=== PATIENT | male | born 1990 ===

== ENCOUNTER 2018-02-20 13:50 | Emergency (ER) | payer OTHER ==
[2018-02-20 13:51] VITALS: BMI 19.2
[2018-02-20] MEDS ORDERED: Sodium Chloride 0.9% 1,000 ML IV STA (14:36)
[2018-02-20] MEDS ORDERED: Sucralfate 1 gm/10 ml Oral Susp UD PO STA (14:39)
--- NOTE | 2018-02-20 14:42 | ED PDOC ---
HPI: Abdomen Time Seen by Provider: 02/20/18 14:12 Chief Complaint (Nursing): Abdominal Pain Chief Complaint (Provider): Abdominal Pain History Per: Patient History/Exam Limitations: no limitations Onset/Duration Of Symptoms: Days (x4) Outside of [place] travel?: No Current Symptoms Are (Timing): Still Present Quality Of Discomfort: "Pain" Associated Symptoms: Fever, Chills, Nausea, Vomiting, Diarrhea Additional Complaint(s): 27 y/o male with a history of asthma presents to the ED for abdominal pain. Patient states symptoms began 4 days ago associated with diarrhea, 2 episodes of vomiting per day with specs of blood noted; also reports fever, chills, nausea, and achiness in his legs. He took TheraFlu last night at 1:00 AM prior to ED visit. Denies having any sick contacts. PMD: none provided Past Medical History Reviewed: Historical Data, Nursing Documentation, Vital Signs Vital Signs: Last Vital Signs Temp 98.1 F 02/20/18 13:55 Pulse 76 02/20/18 13:55 Resp 16 02/20/18 13:55 BP 148/92 H 02/20/18 13:55 Pulse Ox 98 02/20/18 15:30 - Medical History PMH: Asthma - Surgical History Surgical History: No Surg Hx - Family History Family History: States: Unknown Family Hx - Social History Current smoker - smoking cessation education provided: No Ex-Smoker (has not smoked in the last 12 months): No Alcohol: Social Drugs: Denies - Home Medications Home Medications: Ambulatory Orders Medication Instructions Recorded Diphenhydramine Hydrochlorid 25 mg PO Q6 PRN #30 cap 06/04/14 [Benadryl] Albuterol HFA [Ventolin HFA 90 2 puff IH [id number] PRN #1 puff 07/10/14 mcg/actuation (8 g)] Cyclobenzaprine HCl [Flexeril] 10 mg PO Q8 #15 tab 08/09/14 Ibuprofen [Motrin] 600 mg PO Q8 PRN #20 tab 08/09/14 Albuterol HFA [Ventolin HFA 90 1 puff IH Q4 PRN #1 unit 12/19/14 mcg/actuation (8 g)] Benzonatate [Tessalon Perles] 200 mg PO Q8H PRN #30 tab 12/19/14 Oseltamivir Phosphate [Tamiflu] 75 mg PO BID #10 cap 12/19/14 Albuterol HFA [Ventolin HFA 90 1 puff IH ASDIR #1 unit 07/30/17 mcg/actuation (8 g)] Azithromycin [Zithromax] 250 mg PO DAILY #6 tab 07/30/17 Benzonatate 200 mg PO TID PRN #20 capsule 07/30/17 Bismuth Subsalicylate [Pepto 262 mg PO Q4H PRN #30 ctb 02/20/18 Bismol] Ondansetron [Zofran] 4 mg PO Q8H #9 tab 02/20/18 - Allergies Allergies/Adverse Reactions: Allergies Allergy/AdvReac Type Severity Reaction Status Date / Time Penicillins Allergy RASH Verified 07/30/17 02:48 ranitidine Allergy RASH Verified 07/30/17 02:48 ibuprofen [From Advil] AdvReac RASH Verified 02/20/18 13:55 Review of Systems ROS Statement: Except As Marked, All Systems Reviewed And Found Negative Constitutional: Positive for: Fever, Chills. Negative for: Other (recent sick contacts) Gastrointestinal: Positive for: Nausea, Vomiting, Abdominal Pain, Diarrhea. Negative for: Hematemesis (with small specs of blood noted) Physical Exam - Reviewed Nursing Documentation Reviewed: Yes Vital Signs Reviewed: Yes - Physical Exam Appears: Positive for: Non-toxic, No Acute Distress Head Exam: Positive for: ATRAUMATIC, NORMOCEPHALIC Eye Exam: Positive for: EOMI, Normal appearance, PERRL ENT: Positive for: Other (lips are dry, mucous membranes slightly dry) Neck: Positive for: Normal, Painless ROM, Supple Cardiovascular/Chest: Positive for: Regular Rate, Rhythm (102 BPM on exam). Negative for: Murmur Respiratory: Positive for: Normal Breath Sounds. Negative for: Respiratory Distress Gastrointestinal/Abdominal: Positive for: Normal Exam (flat), Soft, Tenderness ( mild epigastric). Negative for: Distended, Guarding Back: Positive for: Normal Inspection. Negative for: L CVA Tenderness, R CVA Tenderness Extremity: Positive for: Normal ROM. Negative for: Swelling Neurologic/Psych: Positive for: Alert (awake), Oriented (x3) - Laboratory Results Result Diagrams: 02/20/18 16:10 02/20/18 16:10 - ECG O2 Sat by Pulse Oximetry: 98 (RA) Pulse Ox Interpretation: Normal - Progress Re-evaluation Time: 16:30 Condition: Improved Medical Decision Making Medical Decision Making: Time: 13:55 Impression: Gastroenteritis, viral syndrome, blood streaked emesis Initial Plan: * CMP * UDip * CBC * IV Fluids * Zofran 4 mg IVP * Sucralfate 1 gm PO Scribe Attestation: Documented by Candy Funez acting as a scribe for Rissa Amaya MD. Scribe Attestation: All medical record entries made by the Scribe were at my direction and personally dictated by me. I have reviewed the chart and agree that the record accurately reflects my personal performance of the history, physical exam, medical decision making, and the department course for this patient. I have also personally directed, reviewed, and agree with the discharge instructions and disposition. Disposition - Clinical Impression Clinical Impression: Gastroenteritis - Patient ED Disposition Is Patient to be Admitted: No Doctor Will See Patient In The: Office Counseled Patient/Family Regarding: Diagnosis, Need For Followup - Disposition Referrals: Katharina Garcia [Outside] Disposition: Routine/Home Disposition Time: 16:37 Condition: IMPROVED Prescriptions: Bismuth Subsalicylate [Pepto Bismol] 262 mg PO Q4H PRN #30 ctb PRN Reason: Diarrhea Ondansetron [Zofran] 4 mg PO Q8H #9 tab Instructions: Gastroenteritis (ED) Forms: [facility] Rogers (Mohawk) - POA Present On Arrival: None
[2018-02-20] MEDS ORDERED: Sucralfate 1 gm/10 ml Oral Susp UD ONE (14:46)
[2018-02-20 16:14] LABS: BASO % 0.7 % (0.0-2.0); EOS # 0.3 K/uL (0.0-0.7); EOS % 5.2 % (0.0-4.0); HEMOGLOBIN 15.6 g/dL (12.0-18.0); LYMPH % 16.7 % (20.0-40.0); MEAN CELL VOLUME 87.2 fl (80.0-94.0); MEAN CORPUSCULAR HEMOGLOBIN 30.4 pg (27.0-31.0); MEAN CORPUSCULAR HGB CONC 34.8 g/dL (33.0-37.0); MONO % 16.5 % (0.0-10.0); NEUT # 3.8 K/uL (1.8-7.0); NEUT % 60.9 % (50.0-75.0); NRBC % 0.1 % (0.0-0.0); RBC 5.13 Mil/uL (4.40-5.90); RED CELL DISTRIBUTION WIDTH 12.7 % (11.5-14.5); WHITE BLOOD COUNT 6.3 K/uL (4.8-10.8)
[2018-02-20 16:30] LABS: ALB/GLOB RATIO 1.2 (1.0-2.1); ALBUMIN 4.1 g/dL (3.5-5.0); ALT/SGPT 29 U/L (21-72); AST/SGOT 38 U/L (17-59); BLOOD UREA NITROGEN 11 mg/dl (9-20); CALCIUM 9.1 mg/dL (8.4-10.2); GFR AFRICAN-AMERICAN > 60; GFR NON-AFRICAN AMERICAN > 60
[2018-02-20 17:54] VITALS: BP 138/77; PULSE 67; RESP 17; TEMP 98.3; O2SAT 100
== END 2018-02-20 17:00 | disposition home or self-care (01) ==
LOC: H.ER 13:50
DX: K52.9 Noninfective gastroenteritis and colitis, unspecified (principal); J45.909 Unspecified asthma, uncomplicated
CPT/HCPCS: 80053; 85025; 96361; 96374; 99283; J2405; J7030

== ENCOUNTER 2018-04-12 17:36 | Emergency (ER) | payer OTHER ==
[2018-04-12 17:36] VITALS: BMI 19.2
[2018-04-12 17:48] VITALS: TEMP 97.6; O2SAT 100
[2018-04-12] MEDS ORDERED: Sodium Chloride 0.9% 1,000 ML IV SCH (19:00)
--- NOTE | 2018-04-12 19:20 | ED PDOC ---
HPI: Chest Pain Time Seen by Provider: 04/12/18 17:59 Chief Complaint (Nursing): Chest Pain Chief Complaint (Provider): palpitations, vomiting History Per: Patient, Family History/Exam Limitations: no limitations Onset/Duration Of Symptoms: Hrs Current Symptoms Are (Timing): Better Quality: Sharp, Burning Associated Symptoms: Nausea (Pt. is a 27 y/o healthy male 4 hrs. s/p wisdom tooth extraction with Dr. Miroslava Low. Pt. reports upon returning home he took dose of clindamycin and tylenol #3 and then had upper abd. pain, described as burning pain radiating into chest associated with 1 large episode of vomiting, containing blood and clots. Pt. now reports he is feeling better, ) Past Medical History Vital Signs: Last Vital Signs Temp 97.6 F 04/12/18 17:45 Pulse 68 04/12/18 17:45 Resp 20 04/12/18 17:45 BP 131/89 04/12/18 17:45 Pulse Ox 100 04/12/18 19:46 - Medical History PMH: Asthma - Family History Family History: States: Unknown Family Hx - Home Medications Home Medications: Ambulatory Orders Medication Instructions Recorded Diphenhydramine Hydrochlorid 25 mg PO Q6 PRN #30 cap 06/04/14 [Benadryl] Albuterol HFA [Ventolin HFA 90 2 puff IH [id number] PRN #1 puff 14 mcg/actuation (8 g)] Cyclobenzaprine HCl [Flexeril] 10 mg PO Q8 #15 tab 08/09/14 Ibuprofen [Motrin] 600 mg PO Q8 PRN #20 tab 08/09/14 Albuterol HFA [Ventolin HFA 90 1 puff IH Q4 PRN #1 unit 12/19/14 mcg/actuation (8 g)] Benzonatate [Tessalon Perles] 200 mg PO Q8H PRN #30 tab 12/19/14 Oseltamivir Phosphate [Tamiflu] 75 mg PO BID #10 cap 12/19/14 Albuterol HFA [Ventolin HFA 90 1 puff IH ASDIR #1 unit 07/30/17 mcg/actuation (8 g)] Azithromycin [Zithromax] 250 mg PO DAILY #6 tab 07/30/17 Benzonatate 200 mg PO TID PRN #20 capsule 07/30/17 Bismuth Subsalicylate [Pepto 262 mg PO Q4H PRN #30 ctb 02/20/18 Bismol] Ondansetron [Zofran] 4 mg PO Q8H #9 tab 02/20/18 - Allergies Allergies/Adverse Reactions: Allergies Allergy/AdvReac Type Severity Reaction Status Date / Time Penicillins Allergy RASH Verified 04/12/18 17:44 ranitidine Allergy RASH Verified 04/12/18 17:44 ibuprofen [From Advil] AdvReac RASH Verified 04/12/18 17:44 Physical Exam - Physical Exam Appears: Positive for: Well ENT: Positive for: Other (recent extractions to right maxillary and mandibular wisdom teeth and left mandibular wisdom tooth, clots intact, no active bleeding. ) Gastrointestinal/Abdominal: Positive for: Tenderness (mild epigastric tenderness.) - Laboratory Results Result Diagrams: 04/12/18 19:18 04/12/18 19:18 - ECG O2 Sat by Pulse Oximetry: 100 Medical Decision Making Medical Decision Making: Case d/w pt's oral surgeon Dr. Miroslava Low, agreed with IVF and trial of po clinda here. If tolerates and feeling better can be discharged to continue clinda. She called in tylenol extra strength to pt's pharmacy. IVF, IV ZOfran and po clinda given. On reassessment, pt. feeling much better, abdomen is soft/nt, no further n/v. Disposition - Clinical Impression Clinical Impression: Abdominal pain, Chest pain - Disposition Disposition: Transfer of Care (Pt. is pending IVF, po challenge, clinda challenge. Care transferred to [facility] at 8pm.) Condition: STABLE Instructions: Nausea and Vomiting, Adult, Stomach Ache and Stomach Upset Forms: [employer] (Afghan)
[2018-04-12 19:25] LABS: BASO % 0.3 % (0.0-2.0); EOS # 0.1 K/uL (0.0-0.7); EOS % 0.7 % (0.0-4.0); HEMOGLOBIN 14.6 g/dL (12.0-18.0); LYMPH % 7.7 % (20.0-40.0); MEAN CELL VOLUME 87.4 fl (80.0-94.0); MEAN CORPUSCULAR HEMOGLOBIN 30.5 pg (27.0-31.0); MEAN CORPUSCULAR HGB CONC 34.9 g/dL (33.0-37.0); MEAN PLATELET VOLUME 6.7 fl (7.2-11.7); MONO % 7.6 % (0.0-10.0); NEUT # 10.9 K/uL (1.8-7.0); NEUT % 83.7 % (50.0-75.0); PLATELET COUNT 179 K/uL (130-400); RBC 4.79 Mil/uL (4.40-5.90); RED CELL DISTRIBUTION WIDTH 12.6 % (11.5-14.5); WHITE BLOOD COUNT 13.1 K/uL (4.8-10.8)
[2018-04-12 19:32] LABS: ALB/GLOB RATIO 1.4 (1.0-2.1); ALT/SGPT 21 U/L (21-72); AST/SGOT 27 U/L (17-59); BLOOD UREA NITROGEN 13 mg/dl (9-20); CALCIUM 8.8 mg/dL (8.4-10.2); GFR AFRICAN-AMERICAN > 60; GFR NON-AFRICAN AMERICAN > 60
[2018-04-12 20:43] LABS: BANDS 2 % (0-2); LYMPHOCYTE 11 % (20-50); MONOCYTE 7 % (0-10); NEUTROPHIL 80 % (42-75); PLATELET ESTIMATE NORMAL (NORMAL); TOTAL CELLS COUNTED 100
[2018-04-12 20:44] LABS: HYPOCHROMIC SLIGHT
[2018-04-12 20:46] LABS: MICROCYTOSIS SLIGHT
--- NOTE | 2018-04-12 21:03 | ED PDOC ---
- Laboratory Results Result Diagrams: 04/12/18 19:18 04/12/18 19:18 - ECG O2 Sat by Pulse Oximetry: 100 Medical Decision Making Medical Decision Making: I ordered 4mg of morphine to help control this pts pain the course will be as follows PO Clynda test IV morph 4mg fluids Pt passed the PO/Clynda challenge and indicates at 2134 that he is ready to go home and sleep in his own bed. The patient's pain has subsided greatly and there is no medical reason for him to remain in the emergency room or be admitted to the hospital the patient will be discharged on 300mg clyndamycin qid as prescribed by his DMD ; he was advised to take 975mg of tylenol for pain not to exceed three thimes in one day Disposition Doctor Will See Patient In The: Office Counseled Patient/Family Regarding: Diagnosis, Need For Followup, Rx Given - Clinical Impression Clinical Impression: Drug intolerance - POA Present On Arrival: None - Disposition Disposition: Routine/Home Disposition Time: 21:36 Condition: STABLE Additional Instructions: follow up with oral surgeon in am Instructions: Nausea and Vomiting, Adult, Stomach Ache and Stomach Upset Forms: [employer] (Bulgarian)
[2018-04-12 22:37] VITALS: BP 119/78; PULSE 74; RESP 16
== END 2018-04-12 21:45 | disposition home or self-care (01) ==
LOC: H.ER 17:36
DX: Z88.6 Allergy status to analgesic agent (principal); Z88.0 Allergy status to penicillin
CPT/HCPCS: 80053; 85025; 96361; 96374; 96375; 99283; J2270; J2405; J7030